=== PATIENT | female | born 1955 | race Hispanic/Latino ===

== ENCOUNTER 2017-09-13 06:55 | Outpatient (CLI) | payer BC ==
--- NOTE | 2017-09-13 08:55 | Fluoroscopy Report ---
UPPER GI AIR CONTRAST: HISTORY: Gastroesophageal reflux disease without esophagitis, emesis without nausea FINDINGS: The esophagram dated 08/25/14 was reviewed. Wrist Hemmer film of the abdomen is unremarkable. The lap band device appears to be in good position without evidence of slippage or migration. Deglutition is normal. The esophagus has normal caliber and mucosal pattern throughout. Again, occasional tertiary contractions in the esophagus were witnessed. There did appear to be mild delay in esophageal emptying throughout this examination. At times, the contrast agent was backed up to the level of the clavicles. The lap band appears to be in good position. No reflux or hiatal hernia were visualized. The gastric cavity is normal caliber and mucosal pattern. Normal duodenal bulb and duodenal sweep. Tiny 1 cm duodenal diverticulum is noted. IMPRESSION: The lap band appears to be in good position although delayed esophageal emptying was suspected throughout this examination. Occasional tertiary contractions in the esophagus were also witnessed as seen on the 2015 exam. I question if the lap band device is too tight. No reflux was witnessed. Please correlate with the patient's clinical presentation and symptoms.
== END 2017-09-13 06:56 | disposition home or self-care (01) ==
LOC: FLUORO 06:55
PROVIDERS: ATTEND Specialist
DX: K21.9 Gastro-esophageal reflux disease without esophagitis (principal); K57.10 Diverticulosis of small intestine without perforation or abscess without bleeding
CPT/HCPCS: 74246

== ENCOUNTER 2017-11-21 05:44 | Day surgery (SDC) | payer BC ==
[2017-11-21] MEDS ORDERED: WATER FOR IRRIG STERILE IR ONE (07:46)
[2017-11-21] MEDS ORDERED: HURRICAINE ONE 20% TOPICAL SPRAY MM ×2 (07:47→08:11)
[2017-11-21] MEDS ORDERED: DIPRIVAN 10 MG/ML IV ONE (08:10)
[2017-11-21 09:06] VITALS: BP 112/78
--- NOTE | 2017-11-21 09:09 | Anesthesia Day of Surgery ---
Anesthesia Day of Surgery - Day of Surgery Patient Examined: Yes Patient H&P Reviewed: Yes Patient is NPO: Yes
--- NOTE | 2017-11-21 09:09 | Anesthesia Consultation ---
Anesthesia Consult and Med Hx Date of service: 11/21/17 - Airway Anesthetic Teeth Evaluation: Good ROM Head & Neck: Adequate Mental/Hyoid Distance: Adequate Mallampati Class: Class II Intubation Access Assessment: Probably Good - Pulmonary Exam CTA: Yes - Cardiac Exam Cardiac Exam: RRR - Pre-Operative Health Status ASA Pre-Surgery Classification: ASA3 - Pre-Anesthesia Comment Pre-Anesthesia Comments: IBS, Lap band 2009 - Pulmonary Hx Smoking: Yes (QUIT 10 YRS AGO , LIGHT TOBACCO SMOKER) - Central Nervous System Hx Psychiatric Problems: Yes (anxiety ) - Gastrointestinal Hx Gastroesophageal Reflux Disease: Yes - Endocrine Hx Cirrhosis: (FATTY LIVER) - Other Systems Hx Obesity: Yes
[2017-11-21] MEDS ORDERED: NACL 0.9% 1000 ML 1,000 ML IV SCH (10:00)
--- NOTE | 2017-11-21 14:40 | Post Anesthesia Evaluation ---
- Post Anesthesia Evaluation Patient Participated: Yes Airway Patent: Yes Stable Respiratory Function: Yes Nausea/Vomiting: No Temp > 96.8F: Yes Pain Manageable: Yes Adequeate Hydration: Yes Anesthesia Complications: No
[2017-11-21] MEDS ORDERED: HURRICAINE ONE 20% TOPICAL SPRAY MM NR (19:00)
== END 2017-11-21 05:45 | disposition home or self-care (01) ==
LOC: GIO 05:44
PROVIDERS: ATTEND Specialist
DX: K95.09 Other complications of gastric band procedure (principal); K44.9 Diaphragmatic hernia without obstruction or gangrene; K21.9 Gastro-esophageal reflux disease without esophagitis; K58.9 Irritable bowel syndrome, unspecified; H91.91 Unspecified hearing loss, right ear; F32.9 Major depressive disorder, single episode, unspecified; F41.9 Anxiety disorder, unspecified; Z90.710 Acquired absence of both cervix and uterus; Z98.890 Other specified postprocedural states; E66.01 Morbid (severe) obesity due to excess calories; Z87.891 Personal history of nicotine dependence; Z68.41 Body mass index [BMI] 40.0-44.9, adult; Z88.2 Allergy status to sulfonamides; Z88.6 Allergy status to analgesic agent; Z91.040 Latex allergy status; Y83.2 Surgical operation with anastomosis, bypass or graft as the cause of abnormal reaction of the patient, or of later complication, without mention of misadventure at the time of the procedure
CPT/HCPCS: 43235; J2704

== ENCOUNTER → 2018-01-10 | Outpatient (CLI) | payer BC | LOC: SLR 11:00 | PROVIDERS: ATTEND Otolaryngology | DX: G47.33 Obstructive sleep apnea (adult) (pediatric) (principal); E66.9 Obesity, unspecified; K21.9 Gastro-esophageal reflux disease without esophagitis; F41.9 Anxiety disorder, unspecified; M19.90 Unspecified osteoarthritis, unspecified site; Z88.2 Allergy status to sulfonamides; Z90.49 Acquired absence of other specified parts of digestive tract | CPT/HCPCS: G0399 ==

== ENCOUNTER 2018-03-27 11:00 | Outpatient (CLI) | payer BC | END 2018-03-27 11:01 | disposition home or self-care (01) | LOC: SLR 11:00 | PROVIDERS: ATTEND Otolaryngology | DX: G47.33 Obstructive sleep apnea (adult) (pediatric) (principal); K21.9 Gastro-esophageal reflux disease without esophagitis; E66.9 Obesity, unspecified; M19.90 Unspecified osteoarthritis, unspecified site; Z87.891 Personal history of nicotine dependence; Z90.49 Acquired absence of other specified parts of digestive tract; Z90.710 Acquired absence of both cervix and uterus | CPT/HCPCS: 95811 ==